=== PATIENT | female | born 1960 ===

== ENCOUNTER 2021-11-26 11:30 | Outpatient (RCR) | payer BC, SELFPAY ==
[2021-11-26 13:16] LABS: Amphetamine Screen Urine Not Detected (Not Detect); Barbiturates, Urine Not Detected (Not Detect); Benzodiazepines Screen Urine Not Detected (Not Detect); Cannabinoid Screen Urine Not Detected (Not Detect); Cocaine Screen Urine Not Detected (Not Detect); Fentanyl, urine Not Detected (Not Detect); Phencyclidine Screen Urine Not Detected (Not Detect)
[2021-11-26 13:17] LABS: Opiate Screen Urine Not Detected (Not Detect)
[2021-11-26 13:59] VITALS: BMI 24.5
--- NOTE | 2021-11-27 12:30 | PC.NURSE ---
Patient called the program to say she will not be here today as she did not sleep much last night.
--- NOTE | 2021-11-27 16:02 | PC.NURSE ---
The client called out this morning. I called and left a message to call me back.
--- NOTE | 2021-11-28 09:34 | PC.NURSE ---
Patient did not show up to the program again this morning. She attended the program for one day. I spoke to patient and she stated she can not continue the program as she needs to get her diabetes under control. Patient stated her A1C is 9.8 and she is in the process of getting ready to go to an appointment with [facility] this morning. I asked her about a prescriber as her current prescriber Dr Vieira contacted me stating she is no longer her provider and emailed the patient indicating this information. Dr Vieira stated she will cover the patient until she finds a new provider. I asked Samantha if she received an email from her prescriber and she stated she was not aware of an email then stated, I got to run as she had to leave for her appointment. Dr Vieira is aware.
== END 2021-11-26 23:59 | disposition home or self-care (01) ==
LOC: HO.PHPA 11:30
PROVIDERS: Nurse Practitioner Psychiatric/Mental Health; Visit Provider Psychiatry & Neurology Psychiatry
DX: F31.2 Bipolar disorder, current episode manic severe with psychotic features (principal)
CPT/HCPCS: 80307; 90791; 90853